=== PATIENT | female | born 1960 | race Two or more races ===

== ENCOUNTER 2020-03-25 11:42 | Emergency (ER) | payer OTHER ==
[~2020-03-25] VITALS: Ht 157.5 cm; Wt 70.3 kg
[2020-03-25] MEDS ORDERED: OMEP20CA15 PO (12:31)
[2020-03-25] MEDS ORDERED: AMLO-212 PO (12:31)
[2020-03-25] MEDS ORDERED: LOSA50TA39 PO (12:31)
[2020-03-25] MEDS ORDERED: SIMV-49 PO (12:31)
[2020-03-25] MEDS ORDERED: MELO-107 PO (12:31)
[2020-03-25] MEDS ORDERED: ASPI-1420 PO (12:31)
[2020-03-25] MEDS ORDERED: ERGO500014 PO (12:31)
--- NOTE | 2020-03-25 12:58 | NUR ---
Pt impatient tp go home. "Wanted just the test- Dr Jacobs made aware. AMA for signed
[2020-03-25 13:01] VITALS: BP 135/79
--- NOTE | 2020-03-26 12:00 | NUR ---
PT CALLED AND NOTIFIED OF POSITIVE COVID RESULT
== END 2020-03-25 13:02 | disposition home or self-care (01) ==
LOC: ER 11:48
DX: U07.1 COVID-19 (principal); I10 Essential (primary) hypertension; Z79.82 Long term (current) use of aspirin; Z79.899 Other long term (current) drug therapy
CPT/HCPCS: 71045; 99284; C9803; U0003